=== PATIENT | male | born 1955 | race Caucasian/White ===

== ENCOUNTER 2021-05-17 10:02 | Emergency (ER) | payer OTHER ==
[~2021-05-17] VITALS: Ht 182.9 cm; Wt 94.0 kg
[2021-05-17 10:13] VITALS: BP 169/98
--- NOTE | 2021-05-17 10:36 | PHYS DOC ---
Past Medical History Additional Past Medical Histor: pulmonary embolism Past Surgical History: Hip Replacement, Other Additional Past Surgical Histo: back surgery General Adult EDM: Chief Complaint: MECHANICAL FALL HPI: HPI: Patient is a 65-year-old male presents to the emergency department reporting left shoulder pain. Patient states he was standing in the back of his pickup truck attempting to push a heavy piece of equipment off the end of his tailgate onto the ground when the equipment caught onto his shirt and pulled him onto the ground with it. Patient states he this threw him off the back of the pickup truck in which he landed on the backside of his left shoulder. Patient denies hitting his head or neck or any other part of his body during the fall. Patient denies any loss of consciousness. Patient states he is unable to move his shoulder very far without extreme pain. Patient states at rest he is a 3 out of 10 pain, increases to a 10 out of 10 when moving the left shoulder joint. Patient denies numbness or tingling to his left arm or hand, denies loss of movement to the elbow wrist or fingers of the left upper extremity. Patient denies a past health history or surgical history, states he takes no medications and has not allergic to any medications. Patient denies taking any pain medications prior to arrival to the emergency department today, states he came to the emergency department right away after the incident. Review of Systems: Review of Systems: 14 body systems of review of systems have been reviewed. See HPI for pertinent positives and negative responses, otherwise all other systems are negative, nonpertinent or noncontributory. Constitutional: Negative except as outlined in HPI above. Skin: Negative except as outlined in HPI above. Eyes: Negative except as outlined in HPI above. HENT: Negative except as outlined in HPI above. Respiratory: Negative except as outlined in HPI above. Cardiovascular: Negative except as outlined in HPI above. GI: Negative except as outlined in HPI above. : Negative except as outlined in HPI above. Musculoskeletal: Negative except as outlined in HPI above. Integument: Negative except as outlined in HPI above. Neurologic: Negative except as outlined in HPI above. Endocrine: Negative except as outlined in HPI above. Lymphatic: Negative except as outlined in HPI above. Psychiatric: Negative except as outlined in HPI above. Heart Score: C/O Chest Pain: No Risk Factors: Risk Factors: DM, Current or recent (<one month) smoker, HTN, HLP, family history of CAD, obesity. Risk Scores: Score 0 - 3: 2.5% MACE over next 6 weeks - Discharge Home Score 4 - 6: 20.3% MACE over next 6 weeks - Admit for Clinical Observation Score 7 - 10: 72.7% MACE over next 6 weeks - Early Invasive Strategies Allergies: Allergies: Allergies Coded Allergies Type Severity Reaction Last Updated Verified No Known Drug Allergies 05/17/21 No Physical Exam: PE: Constitutional: Well developed, well nourished, no acute distress, non-toxic appearance. 65-year-old male self splinting left upper extremity, otherwise in no apparent distress. HENT: Normocephalic, atraumatic. Eyes: Conjunctiva normal, no discharge. Neck: Normal range of motion, no stridor. No midline spinal tenderness. Cardiovascular: No cyanosis appreciated, distal cap refill less than 2 seconds. Lungs & Thorax: Patient is in no respiratory distress, no audible adventitious lung sounds appreciated. Lung sounds clear to auscultate all lung roberts. Abdomen: Nontender, no abnormalities noted. Skin: Warm, dry, no erythema, no rash. Back: No tenderness, no deformities. Extremities: No tenderness, no cyanosis, no clubbing, ROM intact, no edema. Except for left shoulder, superior aspect deformity, no contusion or ecchymosis appreciated, limited passive range of motion of shoulder joint related to pain, no crepitus appreciated. 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 Neurologic: Alert and oriented X 3, normal motor function, normal sensory function, no focal deficits noted. Psychologic: Affect normal, judgement normal, mood normal. Current Patient Data: Vital Signs: Vital Signs Date Time Temp Pulse Resp B/P (MAP) Pulse Ox O2 Delivery O2 Flow Rate FiO2 05/17/21 10:13 97.8 67 15 169/98 (121) 98 Room Air 97.8 EKG: EKG: [] Radiology/Procedures: Radiology/Procedures: PATIENT: MENG HENNING DACCOUNT: [id number] : 1955 LOCATION: ER AGE: 65 SEX: M EXAM STATUS: PRE ER ORD. PHYSICIAN: ARNOLDO DEXTER APRN REASON: Blunt trauma, left shoulder deformity PROCEDURE: SHOULDER 2+V RIGHT EXAM: Left shoulder, 3 views. HISTORY: Trauma. COMPARISON: None. FINDINGS: 3 views of the left shoulder obtained. There is suspected superior subluxation of the distal clavicle relative to the acromion. There is acromioclavicular joint spurring with small inferiorly directed spurs. There is glenohumeral joint space narrowing with marginal glenoid and humeral head spurring. There is punctate calcification along the humeral head possibly associated with the rotator cuff. There is degenerative change involving the visualized cervical spine. IMPRESSION: 1. Suspected superior subluxation of the distal left clavicle. Correlate with physical exam findings. 2. Mild acromioclavicular joint and moderate glenohumeral joint osteoarthritis. Electronically signed by: Kamryn Mullins MD (05/17/2021 10:59 AM) [id number] Course & Med Decision Making: Course & Med Decision Making Pertinent Labs and Imaging studies reviewed. (See chart for details) 65-year-old male, vital signs reviewed, presents emergency department concerning left shoulder pain and deformity after a fall just prior to arrival. Physical examination concerning for left shoulder AC separation versus fracture versus other bony process. Low suspicion for shoulder dislocation. Will order ice packs, x-ray of left shoulder, offered pain medication, patient refused stating he does not hurt very bad. X-ray concerning for AC separation. Discussed patient case and ED work-up with ED attending physician Dr. Casas who physically examined patient, recommended sling, ice pack, NSAID therapy, strict follow-up with orthopedic surgeon outpatient. Discussed with patient the x-ray findings, ice pack, sling to left upper extremity for comfort, [id number] NSAID therapy for pain, strict follow-up with orthopedic surgeon, strict return to ER precautions and concerns, patient gave verbal understanding of and is amenable to ED discharge planning. Discussed with the patient all findings and diagnostic testing as well as the need to follow-up with their primary care provider for further evaluation and treatment or return to the ED if any new or worsening symptoms. Strict return precautions were also discussed at length, the patient voiced understanding and agreement with the discharge planning. The patient was nontoxic in appearance, in no apparent distress, and hemodynamically stable at the time of disposition. Roz Disclaimer: Roz Disclaimer: This electronic medical record was generated, in whole or in part, using a voice recognition dictation system. Departure Departure Impression: Primary Impression: AC separation Qualified Codes: S43.102A - Unspecified dislocation of left acromioclavicular joint, initial encounter Additional Impression: Fall Qualified Codes: W19.XXXA - Unspecified fall, initial encounter Disposition: HOME / SELF CARE / HOMELESS Condition: GOOD Referrals: VARINDER GÓMEZ DO Patient Instructions: Acromioclavicular Separation with [facility]hab[facility] Additional Instructions: You were seen today in the emergency department after a fall onto your left shoulder. This resulted in a separation of your AC joint of your shoulder. As we discussed, please wear the sling was applied in the emergency department today to aid in stability and comfort. You were offered prescription for pain medication today you have elected to use [id number] Tylenol and or Motrin for pain and discomfort. I have recommended a orthopedic surgeon Dr. Wilcox for you to follow-up with for further examination and treatment of your shoulder separation. Please call today for an appointment to be seen soon. Please use ice packs to your left shoulder 30 minutes on 30 minutes off while awake. Please return immediately to the emergency department for sudden loss of sensation to your left arm, increased pain not relieved by [id number] medications, sudden loss of ability to move your left arm at the elbow wrist or hands, or other concerns. Thank you for visiting our Emergency Department. It was a pleasure taking care of you today in the emergency department and we appreciate you trusting us with your care. If any additional problems come up don't hesitate to return to visit us. Please follow up with your primary care provider so they can plan additional care if needed and know about the problem that you had. If symptoms worsen come back to the Emergency Department. Any concerning symptoms that start such as chest pain, shortness of air, weakness or numbness on one side of the body, running high fevers or any other concerning symptoms return to the ER. EMERGENCY DEPARTMENT GENERAL DISCHARGE INSTRUCTIONS Thank you for coming to [facility] Emergency Department (ED) today and trusting us with you care. We trust that you had a positive experience in our Emergency Department. If you wish to speak to the department management, you may call the Director at [phone]. YOUR FOLLOW UP INSTRUCTIONS ARE FOLLOWS: 1. Do you have a private Doctor? If you do not have a private doctor, please ask for a resource list of physicians or clinics that may be able to assist you with follow up care. 2. The Emergency Physicain has interpreted your x-rays. The X-Ray specialist will also review them. If there is a change in the findings, you will be notified in 48 hours when at all possible. 3. A lab test or culture has been done, your results will be reviewed and you will be notified if you need a change in treatment. ADDITIONAL INSTRUCTIONS AND INFORMATION: 1. Your care today has been supervised by a physician who is specially trained in emergency care. Many problems require more than one evaluation for a complete diagnosis and treatment. We recommend that you schedule your follow up appointment as recommended to ensure complete treatment of you illness or injury. If you are unable to obtain follow up care and continue to have a problem, or if your condition worsens, we recommend that you return to the ED. 2. We are not able to safely determine your condition over the phone nor are we able to give sound medical advice over the phone. For these safety reasons, if you call for medical advice we will ask you to come to the ED for further evaluation. 3. If you have any questions regarding these discharge instructions please call the ED at [phone]. SAFETY INFORMATION: In the interest of safety, wellness, and injury prevention; we encourage you to wear your sealbelt, if you smoke; quite smoking, and we encourage family to use a protective helmet for bicycling and other sporting events that present an increased risk for head injury. IF YOUR SYMPTOMS WORSEN OR NEW SYMPTOMS DEVELOP, OR YOU HAVE CONCERNS ABOUT YOUR CONDITION; OR IF YOUR CONDITION WORSENS WHILE YOU ARE WAITING FOR YOUR FOLLOW UP APPOINTMENT; EITHER CONTACT YOUR PRIMARY CARE DOCTOR, THE PHYSICIAN WHOSE NAME AND NUMBER YOU WERE GIVEN, OR RETURN TO THE ED IMMEDIATELY. ARNOLDO DEXTER APRN May 17, 2021 10:36
--- NOTE | 2021-05-17 11:01 | RAD ---
EXAM: Left shoulder, 3 views. HISTORY: Trauma. COMPARISON: None. FINDINGS: 3 views of the left shoulder obtained. There is suspected superior subluxation of the dista l clavicle relative to the acromion. There is acromioclavicular joint spurring with small inferiorly directed spurs. There is glenohumeral joint space narrowing with marginal glenoid and humeral head sp urring. There is punctate calcification along the humeral head possibly associated with the rotator c uff. There is degenerative change involving the visualized cervical spine. IMPRESSION: 1. Suspected superior subluxation of the distal left clavicle. Correlate with physical exam findings. 2. Mild acromioclavicular joint and moderate glenohumeral joint osteoarthritis. Electronically signed by: Kamryn Mullins MD (05/17/2021 10:59 AM) [id number]
== END 2021-05-17 11:29 | disposition home or self-care (01) ==
LOC: ER 10:02
DX: S43.102A Unspecified dislocation of left acromioclavicular joint, initial encounter (principal); M19.012 Primary osteoarthritis, left shoulder; W18.39XA Other fall on same level, initial encounter; Y93.89 Activity, other specified; Y92.89 Other specified places as the place of occurrence of the external cause; Y99.8 Other external cause status
CPT/HCPCS: 73030; 99283; A4565